=== PATIENT | female | born 1935 | race Caucasian/White ===

== ENCOUNTER 2020-07-31 09:56 | Emergency (ER) | payer MEDICARE, OTHER ==
[~2020-07-31] VITALS: Ht 170.2 cm; Wt 81.6 kg
[2020-07-31] MEDS ORDERED: ALPRAZOLAM0.25 MG PO (10:22)
[2020-07-31] MEDS ORDERED: HYDROCHLOROTH12.5 MG PO (10:23)
[2020-07-31] MEDS ORDERED: ATENOLOL25 MG PO (10:23)
== END 2020-07-31 14:12 | disposition home or self-care (01) ==
LOC: ED 09:56
DX: K59.00 Constipation, unspecified (principal); I10 Essential (primary) hypertension; K21.9 Gastro-esophageal reflux disease without esophagitis; Z88.2 Allergy status to sulfonamides; Z88.8 Allergy status to other drugs, medicaments and biological substances; Z79.899 Other long term (current) drug therapy
CPT/HCPCS: 74018; 80053; 81001; 83690; 85025; 99284-25